=== PATIENT | female | born 1975 | race Hispanic/Latino ===

== ENCOUNTER 2024-05-02 12:16 | Inpatient (IN) | payer SELFPAY ==
[2024-05-02] MEDS ORDERED: ONDANSETRON 4 MG/2 ML VIAL ONE (13:21)
[2024-05-02] MEDS ORDERED: NA CHLORIDE 0.9% 1,000 ML ONE (13:21)
[2024-05-02 13:44] LABS: Absolute Basophils 0.1 K/uL (0-0.5); Absolute Lymphocytes (CBC) 1.6 K/uL (0.7-4.9); Absolute Monocytes 0.6 K/uL (0.1-1.3); Absolute Neutrophil 4.3 K/uL (1.8-8.0); Eosinophils % 0.3 % (0-4.4); Hematocrit 28.4 % (36.0-45.0); Hemoglobin 8.6 g/dL (12.0-15.0); MCH 17.7 pg (27.0-35.0); MCHC 30.3 g/dL (32.0-36.0); MCV 58.5 fL (80-100); MPV 8.7 fL (7.6-11.3); Monocytes % 8.8 % (3.3-12.3); Neutrophils % 65.9 % (41.7-73.7); Platelets 453 thou/uL (152-406); RBC Red Blood Cell Count 4.86 M/uL (3.86-4.86)
[2024-05-02 13:58] LABS: SARS-CoV-2 Antigen CONTROL BLUE LINE VIS/BG OK; SARS-CoV-2 Antigen Rapid Res Negative (Negative)
[2024-05-02 13:59] LABS: Albumin 3.9 g/dL (3.4-5.0); Anion Gap 9.6 mEq/L (5.0-15.0); Bilirubin Total 0.5 mg/dL (0.2-1.0); Globulin 4.1 g/dL (2.3-3.5); Potassium 3.6 mEq/L (3.5-5.1)
[2024-05-02 14:04] LABS: Anisocytosis 1+; Blood Morphology Comment NOTED (NOT SEEN); Hypochromasia 2+; Macrocytosis SLIGHT; Microcytosis 2+; Platelet Estimate ADEQ; White Blood Cell Scan OK (OK)
[2024-05-02 14:05] LABS: Platelets Clumped FEW
--- NOTE | 2024-05-02 15:10 | RAD REPORT ---
EXAMINATION: CT ABDOMEN AND PELVIS WITH CONTRAST CLINICAL INDICATION: Female, 48 years old.vomiting, diarrhea, blood in stool;Abd pain TECHNIQUE: CT abdomen and pelvis was performed, after the administration of IV contrast, as per [facility] behavioral care protocol. Axial, sagittal and coronal reconstructions were obtained. One or more of the following dose reduction techniques were used: Automated exposure control, adjustment of the mA and/o r kV according to patient size, and/or iterative reconstruction. Unless otherwise specified, incidental findings do not require dedicated imaging follow-up. [id number]. COMPARISON: No prior exam. FINDINGS: LOWER CHEST: No acute process identified.No significant pericardial effusion. Small hiatal hernia wit h circumferential thickening of the esophagus which could reflect esophagitis. Bilateral breast prostheses. UPPER GI: Progression wall thickening of the duodenum. There are some hyperdense material in the bianca pyloric region which may be recently ingested. LIVER: Hepatic steatosis, but otherwise unremarkable. GALLBLADDER/BILE DUCTS: Cholelithiasis without CT evidence of acute cholecystitis.? PANCREAS: No mass, ductal dilation, or bianca-pancreatic fluid. SPLEEN: Unremarkable. ADRENALS: No adrenal masses. KIDNEYS AND URETERS: No hydronephrosis.No suspicious renal mass. ABDOMINAL AORTA AND OTHER VESSELS: Normal caliber aorta and IVC. PERITONEUM: No abnormal free fluid. No free air. LYMPH NODES: No pathologic lymphadenopathy. ABDOMINAL WALL: Unremarkable SMALL BOWEL/COLON: Small bowel has normal course and caliber. No colonic wall thickening or pericolon ic inflammatory changes.Normal appendix. URINARY BLADDER: Underdistended but grossly unremarkable. REPRODUCTIVE ORGANS: Large intramural fibroid measuring 5.6 cm. Endometrial thickening versus fluid. MUSCULOSKELETAL: No acute or suspicious osseous abnormality. ADDITIONAL FINDINGS: None. IMPRESSION: No acute or significant abnormalities seen in the abdomen or pelvis. Cholelithiasis without CT evidence of acute cholecystitis. Possible wall thickening at the distal stomach/proximal duodenum. Dense contents in the peripyloric r egion may be recently ingested. Correlate clinically. Endoscopy could further evaluate this finding as well as the distal esophageal wall thickening. Large uterine fibroid. Endometrial fluid versus thickening which is probably within normal limits ass uming the patient is premenopausal. Normal appendix.
[2024-05-02] MEDS ORDERED: PANTOPRAZOLE 40 MG INJ ONE (15:50)
[2024-05-02] MEDS: PANTOPRAZOLE INJ 80 MG in NA CHLORIDE 0.9% 250 ML IV SCH (15:52)
--- NOTE | 2024-05-02 15:56 | EDPHYS ---
Physician Documentation [facility] Name: Olga Lidia Rodríguez Age: 48 yrs Sex: Female : 1975 Arrival Date: 05/02/2024 Time: 12:16 Bed 28 Private MD: ED Physician José Bray HPI: 05/02 13:31 This 48 yrs old Female presents to ER via Ambulatory with complaints of Fever, rn Flu Symptoms. 13:31 The patient presents with abdominal pain that is diffuse. rn 13:32 Onset: The symptoms/episode began/occurred 3 day(s) ago. The symptoms do not radiate. rn Associated signs and symptoms: Pertinent positives: nausea and vomiting, blood in stools, diarrhea, fever, Pertinent negatives:. The symptoms are described as achy, crampy. Modifying factors: The symptoms are alleviated by nothing, the symptoms are aggravated by nothing. The patient has not experienced similar symptoms in the past. 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 - Infectious Disease History:: Denies. - Social history:: Smoking status: Patient denies any tobacco usage or history of. - Family history:: not pertinent. - Hospitalizations: : No recent hospitalization is reported. ROS: 13:32 Constitutional: Positive for fever and chills Cardiovascular: Negative for chest pain, rn palpitations, and edema, Respiratory: Negative for shortness of breath, cough, wheezing, and pleuritic chest pain, Abdomen/GI: Positive for middle abdominal pain with nausea/vomiting/diarrhea MS/Extremity: Negative for injury and deformity, Skin: Negative for injury, rash, and discoloration, Neuro: Positive for generalized weakness and malaise Exam: 13:32 Constitutional: This is a well developed, well nourished patient who is awake, alert, rn and in no acute distress. Ambulatory to room without assistance ENT: Dry mucous membranes Cardiovascular: Regular rate and rhythm. No pulse deficits. Respiratory: No increased work of breathing, no retractions or nasal flaring. Abdomen/GI: Soft, no focal tenderness, mild tenderness mid abdomen Neuro: Awake and alert, GCS 15 Vital Signs: 12:57 BP 128 / 77; Pulse 81; Resp 17; Temp 97.9(O); Pulse Ox 98% ; Weight 54.43 kg; Height 4 ap3 ft. 11 in. ; Pain 8/10; 16:30 BP 124 / 86 Supine; Pulse 80; ll1 16:32 BP 121 / 70 Sitting; Pulse 75; ll1 16:35 BP 120 / 79 Standing; Pulse 78; ll1 12:57 Body Mass Index 24.24 (54.43 kg, 149.86 cm) ap3 12:57 Pain Scale: Adult ap3 MDM: 12:25 Medical Screening Exam initiated rn 15:55 Differential diagnosis: cholecystitis, Cholelithiasis, diverticulitis, gastritis, rn non-specific abd pain, pancreatitis, Peptic Ulcer Disease, Perf. Duodenal Ulcer, Perf. Gastric Ulcer, Peptic ulcer disease, duodenitis. Data reviewed: vital signs, nurses notes, lab test result(s), radiologic studies, CT scan, and as a result, I will admit patient. Consideration of Admission/Observation Patient was admitted/placed on observation. Escalation of care including admission/observation considered. Counseling: I had a detailed discussion with the patient and/or guardian regarding the historical points, exam findings, and any diagnostic results supporting the discharge/admit diagnosis, lab results, radiology results, the need for further work-up and treatment in the hospital. 05/02 17:46 Order name: Type and Screen [facility] 05/02 12:25 Order name: Flu; Complete Time: 14:22 rn 05/02 12:25 Order name: SARS-COV-2 Antigen Rapid; Complete Time: 14:11 05/02 12:58 Order name: CBC with Diff; Complete Time: 14:11 05/02 12:58 Order name: CMP; Complete Time: 14:11 rn 05/02 12:58 Order name: Lipase; Complete Time: 14:11 05/02 14:05 Order name: CBC Smear Scan; Complete Time: 14:11 [facility] 05/02 17:46 Order name: Type and Screen [facility] 05/02 17:46 Order name: Ferritin [facility] 05/02 17:46 Order name: Ferritin [facility] 05/02 17:46 Order name: Iron [facility] 05/02 17:46 Order name: Iron EDMS 05/02 17:46 Order name: Retic Count ED[facility] 05/02 17:46 Order name: Retic Count [facility] 05/02 17:46 Order name: Transferrin Sat/Iron Binding [facility] 05/02 17:46 Order name: Transferrin Sat/Iron Binding [facility] 05/03 05:40 Order name: ABO/RH no charge [facility] 05/02 12:58 Order name: CT Abd/Pelvis - IV Contrast Only; Complete Time: 15:13 rn 05/02 12:58 Order name: IV Saline Lock; Complete Time: 13:31 rn 05/02 12:58 Order name: Labs collected and sent; Complete Time: 13:31 rn 05/02 16:02 Order name: Orthostatics; Complete Time: 16:40 jl7 Administered Medications: 13:32 Drug: Ondansetron IVP 4 mg IVP once; over 2 minutes Route: IVP; Site: left antecubital; ld1 15:55 Follow up: Response: No adverse reaction; Nausea is decreased ll1 13:32 Drug: NS 0.9% IV 1000 ml IV at 1 bolus Per protocol; to be given as a bolus over 60 ld1 minutes Route: IV; Rate: 1 bolus; Site: left antecubital; 15:56 Follow up: Response: No adverse reaction; IV Status: Completed infusion; IV Intake: ll1 1000ml 15:55 Drug: Pantoprazole IVP 40 mg IVP once Route: IVP; Site: left antecubital; ll1 16:39 Follow up: Response: No adverse reaction ll1 16:40 Drug: Pantoprazole IV 8 mg/hr IV at 25 ml/hr continuous; (Standard dilution is 80 mg in ll1 250 mL NS) Route: IV; Rate: 25 ml/hr; Site: left antecubital; 17:34 Follow up: Response: No adverse reaction; IV Status: Infusion continued upon admission; ll1 IV Intake: 25ml Disposition Summary: 05/02/24 15:56 Hospitalization Ordered Notes: Hospitalization Status: Inpatient Admission rn Provider: Asa Robledo rn Condition: Stable rn Problem: new rn Symptoms: are unchanged rn Bed/Room Type: Standard rn Location: Telemetry/MedSurg (Inpatient)(05/03/24 14:54) Room Assignment: 422(05/03/24 14:54) bd Diagnosis - Duodenitis rn - Acute gastritis with bleeding rn - Anemia, unspecified rn Forms: - Medication Reconciliation Form rn - SBAR form rn - Leadership Thank You Letter rn Signatures: Dispatcher [employer] EDMS Jessica Diez bd José Bray MD MD rn Leal, Jahala, RN RN jl7 Emily Larsen RN RN ap3 Marina Beth, RN RN ll1 Mae Zelaya RN RN ld1 Niurka Avery, RN RN kb3 Corrections: (The following items were deleted from the chart) 12:59 12:58 CBC+H.LAB.BRZ ordered. EDMS EDMS 12:59 12:58 COMPREHENSIVE METABOLIC PANEL+C.LAB.BRZ ordered. EDMS EDMS 12:59 12:58 LIPASE+C.LAB.BRZ ordered. EDMS EDMS 12:59 12:59 Abdomen Pelvis W Con+CT.RAD.BRZ ordered. EDMS EDMS 18:02 15:56 Telemetry/MedSurg (Inpatient) rn kb3 18:02 15:56 rn kb3 05/03 14:54 05/02 18:02 [facility] ER HOLD kb3 bd 05/03 14:54 05/02 18:02 ERHOLD- kb3 bd
--- NOTE | 2024-05-02 15:56 | ER ---
Nurse's Notes [facility] Name: Olga Lidia Rodríguez Age: 48 yrs Sex: Female : 1975 Arrival Date: 05/02/2024 Time: 12:16 Bed 28 Private MD: Diagnosis: Duodenitis;Acute gastritis with bleeding;Anemia, unspecified Presentation: 05/02 12:57 Chief complaint: Patient states: she has been having fever, vomiting and blood in stool ap3 with abdominal cramping since Thursday04/29/24. patient currently rates her pain as a 8/10 on the pain scale. Coronavirus screen: At this time, the client does not indicate any symptoms associated with coronavirus-19. Ebola Screen: No symptoms or risks identified at this time. Initial Sepsis Screen: Does the patient meet any 2 criteria? No. Patient's initial sepsis screen is negative. Does the patient have a suspected source of infection? No. Patient's initial sepsis screen is negative. Risk Assessment: Do you want to hurt yourself or someone else? Patient reports no desire to harm self or others. Onset of symptoms was April 29, 2024. 12:57 Method Of Arrival: Ambulatory ap3 12:57 Acuity: SUE 3 ap3 Triage Assessment: 12:59 General: Appears in no apparent distress. Behavior is calm, cooperative, appropriate ap3 for age. Pain: Complains of pain in abdomen Pain currently is 8 out of 10 on a pain scale. Neuro: Level of Consciousness is awake, alert, obeys commands, Oriented to person, place, time, situation, Appropriate for age. Cardiovascular: Patient's skin is warm and dry. Respiratory: Airway is patent Respiratory effort is even, unlabored, Respiratory pattern is regular, symmetrical. GI: Reports lower abdominal pain, upper abdominal pain, cramping, bloody stool. 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 - Infectious Disease History:: Denies. - Social history:: Smoking status: Patient denies any tobacco usage or history of. - Family history:: not pertinent. - Hospitalizations: : No recent hospitalization is reported. Screenin:59 [facility] ED Fall Risk Assessment (Adult) History of falling in the last 3 months, ap3 including since admission No falls in past 3 months (0 pts) Confusion or Disorientation No (0 pts) Intoxicated or Sedated No (0 pts) Impaired Gait No (0 pts) Mobility Assist Device Used No (0 pt) Altered Elimination No (0 pt) Score/Fall Risk Level 0 - 2 = Low Risk Oriented to surroundings, Maintained a safe environment, Educated pt \T\ family on fall prevention, incl call for assistance when getting out of bed, Assessed \T\ reinforced patient's understanding of fall precautions, Hourly rounding (assess needs \T\ fall precautionary measures) done, Used ambulatory aids as needed (educated on \T\ assisted with), Used gait belt as appropriate. Abuse screen: Denies threats or abuse. Nutritional screening: No deficits noted. Tuberculosis screening: No symptoms or risk factors identified. Assessment: 15:50 General: Appears uncomfortable, Behavior is calm, cooperative, appropriate for age, ll1 Reports fever for feeling ill for fatigue for. 15:50 Pain: Pain currently is 8 out of 10 on a pain scale. Quality of pain is described as ll1 aching, crampy. Neuro: Reports weakness. GI: Reports cramping, rectal bleeding, nausea, vomiting. 16:50 Reassessment: No changes from previously documented assessment. Patient and/or family ll1 updated on plan of care and expected duration. Pain level reassessed. Vital Signs: 12:57 BP 128 / 77; Pulse 81; Resp 17; Temp 97.9(O); Pulse Ox 98% ; Weight 54.43 kg; Height 4 ap3 ft. 11 in. ; Pain 8/10; 16:30 BP 124 / 86 Supine; Pulse 80; ll1 16:32 BP 121 / 70 Sitting; Pulse 75; ll1 16:35 BP 120 / 79 Standing; Pulse 78; ll1 12:57 Body Mass Index 24.24 (54.43 kg, 149.86 cm) ap3 12:57 Pain Scale: Adult ap3 ED Course: 12:18 Patient arrived in ED. ra3 12:25 José Bray MD is Attending Physician. rn 12:58 Triage completed. ap3 12:59 Arm band placed on right wrist. ap3 13:32 SARS-COV-2 Antigen Rapid Sent. ld1 13:32 Flu Sent. ld1 13:32 CBC with Diff Sent. ld1 13:32 CMP Sent. ld1 13:32 Lipase Sent. ld1 13:32 Inserted saline lock: 20 gauge in left antecubital area, using aseptic technique. Blood ld1 collected. Flushed with 10 mL NS. 14:37 CT Abd/Pelvis - IV Contrast Only In Process Unspecified. EDMS 15:47 Marina Beth, RN is Primary Nurse. ll1 15:50 Patient has correct armband on for positive identification. Bed in low position. ll1 Provided Education on: ER procedures and process. Client placed on continuous cardiac and pulse oximetry monitoring. NIBP monitoring applied. 15:55 Asa Robledo is Hospitalizing Provider. rn 16:44 No provider procedures requiring assistance completed. Patient admitted, IV remains in ll1 place. 05/03 06:58 Primary Nurse role handed off by Marina Beth, LUL bd Administered Medications: 05/02 13:32 Drug: Ondansetron IVP 4 mg IVP once; over 2 minutes Route: IVP; Site: left antecubital; ld1 15:55 Follow up: Response: No adverse reaction; Nausea is decreased ll1 13:32 Drug: NS 0.9% IV 1000 ml IV at 1 bolus Per protocol; to be given as a bolus over 60 ld1 minutes Route: IV; Rate: 1 bolus; Site: left antecubital; 15:56 Follow up: Response: No adverse reaction; IV Status: Completed infusion; IV Intake: ll1 1000ml 15:55 Drug: Pantoprazole IVP 40 mg IVP once Route: IVP; Site: left antecubital; ll1 16:39 Follow up: Response: No adverse reaction ll1 16:40 Drug: Pantoprazole IV 8 mg/hr IV at 25 ml/hr continuous; (Standard dilution is 80 mg in ll1 250 mL NS) Route: IV; Rate: 25 ml/hr; Site: left antecubital; 17:34 Follow up: Response: No adverse reaction; IV Status: Infusion continued upon admission; ll1 IV Intake: 25ml Medication: 16:44 VIS not applicable for this client. ll1 Intake: 15:56 IV: 1000ml; Total: 1000ml. ll1 17:34 IV: 25ml; Total: 1025ml. ll1 Outcome: 15:56 Decision to Hospitalize by Provider. rn 16:44 Admitted to Med/surg ll1 16:44 Condition: stable 16:44 Instructed on the need for admit, 05/03 16:59 Patient left the ED. ld1 Signatures: Dispatcher [employer] EDMS Jessica Diez Roman, MD MD rn Prokisch, LUL Diaz RN joe3 Marina Beth RN RN ll1 Mae Zelaya RN RN ld1 Sue Sanon ra3 Corrections: (The following items were deleted from the chart) 05/02 16:44 15:50 General: Appears uncomfortable, Behavior is calm, cooperative, appropriate for ll1 age, Reports fever for feeling ill for fatigue for ll1
[2024-05-02] MEDS ORDERED: MAGNESIUM HYDROXIDE 8% 30 ML PO PRN (17:37)
[2024-05-02] MEDS ORDERED: ALBUTEROL 2.5 MG/3 ML NEB SOL NEB PRN (17:37)
[2024-05-02] MEDS ORDERED: ACETAMINOPHEN 325 MG TABLET PO PRN (17:37)
[2024-05-02] MEDS ORDERED: ZOLPIDEM TARTRATE 5 MG TABLET PO PRN (17:37)
[2024-05-02] MEDS: D5.45NS W/KCL 20MEQ 1,000 ML IV SCH (18:00)
--- NOTE | 2024-05-02 19:27 | P.HP ---
Certification for Inpatient Patient admitted to: Observation With expected LOS: <2 Midnights Patient will require the following post-hospital care: None Practitioner: I am a practitioner with admitting privileges, knowledge of patient current condition, hospital course, and medical plan of care. Services: Services provided to patient in accordance with Admission requirements found in Title 42 Section 412.3 of the Code of Federal Regulations Patient History Date of Service: 05/02/24 Reason for admission: Duodenitis, acute gastritis with hematochezia, anemia History of Present Illness: Ms. Rodríguez is a 48-year-old female with a past medical history of irregular menstrual cycles with menorrhagia and anemia. She presented to the emergency room secondary to nightly fevers of 101, mild dizziness, nausea, vomiting, and passage of bright red diarrheal stools for the past 3 days. On exam she is hemodynamically stable, with mild pallor, afebrile, and oriented x 3. She will be admitted for hydration, serial H&H evaluations, a Protonix drip, with consultation with Dr. Melgoza. Allergies levofloxacin [From Levaquin] Allergy (Verified 05/02/24 15:20) Rash Home Medications: NK [No Home Meds] 05/02/24 - Past Medical/Surgical History Has patient received pneumonia vaccine in the past: No -: Irregular heavy cycles -: x 4 Psychosocial/ Personal History: Patient lives at home with her children, she states she has had similar episodes in the past but not for the last 8 or 9 years - Family History Father -: Hypertension Mother -: Hypertension - Social History Smoking Status: Never smoker Alcohol use: No CD- Drugs: No Caffeine use: Yes Place of Residence: Home Review of Systems 10-point ROS is otherwise unremarkable General: Fever, Weakness, As per HPI Eyes: Unremarkable ENT: Unremarkable Respiratory: Unremarkable Cardiovascular: Unremarkable Gastrointestinal: Nausea, Vomiting, Abdominal Pain, Diarrhea, As per HPI Genitourinary: Unremarkable Musculoskeletal: Unremarkable Integumentary: Unremarkable Neurological: Unremarkable Lymphatics: Unremarkable Physical Examination - Physical Exam General: Alert, In no apparent distress, Oriented x3, Cooperative, Other (mild pallor) HEENT: Atraumatic, Normocephalic Neck: Supple Respiratory: Clear to auscultation bilaterally, Normal air movement Cardiovascular: Normal pulses, Regular rate/rhythm, Systolic murmur Capillary refill: <2 Seconds Gastrointestinal: Soft and benign Musculoskeletal: No clubbing, No swelling Integumentary: No rashes Neurological: Normal speech, Normal affect Lymphatics: No axilla or inguinal lymphadenopathy External genitalia: Deferred Rectal: Deferred - Studies Laboratory Data (last 24 hrs) 05/02/24 05/02/24 13:25 13:25 WBC 6.60 Hgb 8.6 L Hct 28.4 L Plt Count 453 H Sodium 136 Potassium 3.6 BUN 9 Creatinine 0.61 Glucose 102 Total Bilirubin 0.5 AST 16 ALT 19 Alkaline Phosphatase 43 L Lipase 29 Microbiology Data (last 24 hrs): 05/02/24 13:30 Nasopharnyx Influenza Type A Antigen Screen - Final 05/02/24 13:30 Nasopharnyx Influenza Type B Antigen Screen - Final Assessment and Plan - Plan Duodenitis, GIB Patient is otherwise stable. 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
[2024-05-02] MEDS ORDERED: ACETAMINOPHEN 500 MG TAB ONE (20:52)
[2024-05-02] MEDS: ACETAMINOPHEN 500 MG TAB PO PRN (21:49)
[2024-05-02] MEDS ORDERED: D5.45NS W/KCL 20MEQ 1,000 ML IV ONE (22:46)
[2024-05-02] MEDS ORDERED: FAMOTIDINE 20 MG TAB ONE (22:46)
[2024-05-03 05:02] LABS: Percent Reticulocyte Count 1.99 % (0.4-2.05); RBC Red Blood Cell Count 3.97 M/uL (3.86-4.86)
[2024-05-03 05:14] LABS: Ferritin 5.5 ng/mL (8-252)
[2024-05-03] MEDS ORDERED: ONDANSETRON 4 MG/2 ML VIAL ONE (08:35)
[2024-05-03] MEDS ORDERED: FAMOTIDINE 20 MG TAB ONE (08:36)
[2024-05-03] MEDS: SOD FERRIC GLUC COMPLX/SUCROSE 250 MG in NA CHLORIDE 0.9% 250 ML IV SCH (08:43)
[2024-05-03] MEDS: ONDANSETRON 4 MG/2 ML VIAL IV PRN (08:43)
[2024-05-03] MEDS: FAMOTIDINE 20 MG TAB PO SCH (08:43)
[2024-05-03] MEDS ORDERED: D5.45NS W/KCL 20MEQ 1,000 ML IV ONE (10:52)
--- NOTE | 2024-05-03 13:11 | P.PN ---
Subjective Date of Service: 05/03/24 Chief Complaint: Duodenitis, acute gastritis with hematochezia, anemia Subjective: No new changes Patient states that no more rectal bleeding, denied any diarrhea or constipation or chest pain or shortness of breath. Poor oral intake, mild epigastric pain, but tolerating oral fluid without any nausea and vomiting. She [facility] but have not seen STATE DIRECTOR or any intervention. Review of Systems Other: Consitutional; fever(-), chills (-), rigor(-), night sweat(-), unintentional weight loss(-), malaise (-) HEENT; diplopia (-), rhinorrhea (-), epistaxis (-), otorrhea (-), otalgia (-) Respiratory; shortness of breath (-), wheezing (-), cough (-), sputum (-), pleuritic chest pain (-) Cardiovascular; chest pain (-), peripheral edema (-), paroxysmal nocturnal dyspnea (-), orthopnea (-) Gastrointestinal; nausea (-), vomiting (-), abdominal pain (+), diarrhea (-), constipation (-), melena (-), hematochezia (+) Genitourinary; urinary frequency (-), dysuria (-), urgency (-), flank pain (-), gross hematuria (-), incontinence (-) Skin; rash (-), pruritus (-) FATBACK TRIMMER; headache (-), paresthesia (-), numbness (-), paralysis (-) Physical Examination - Vital Signs Temperature: 98.2 F Blood Pressure: 165/87 Pulse: 86 Respirations: 16 Pulse Ox (%): 100 - Physical Exam Other Physical/Emotional Findings: - Physical Exam. General: Not acutely ill looking, in no apparent distress,. HEENT: Normocephalic, atraumatic, nonicteric sclera, anemic conjunctive. Neck: Supple, without JVD or goiter or thyroid mass. Respiratory: Normal breathing effort, clear to auscultation bilaterally, no crackles no wheezing or rhonchi. Cardiovascular: Regular rate and rhythm, S1, S2 normal, no murmur no gallop. Gastrointestinal: Normal bowel sounds, nondistended, nontender, No ascites, , No masses, no hepatosplenomegaly. Extremities : No clubbing, No peripheral edema,. Integumentary: No rashes, petechia, suspected lesions. Lymphatics: No axilla or cervical lymphadenopathy. Neurology; alert awake oriented x3, no focal neurologic deficit, normal affection . mood and behavior. - Studies Laboratory Data (last 24 hrs) 05/02/24 05/02/24 13:25 13:25 WBC 6.60 Hgb 8.6 L Hct 28.4 L Plt Count 453 H Sodium 136 Potassium 3.6 BUN 9 Creatinine 0.61 Glucose 102 Total Bilirubin 0.5 AST 16 ALT 19 Alkaline Phosphatase 43 L Lipase 29 Microbiology Data (last 24 hrs): 05/02/24 13:30 Nasopharnyx Influenza Type A Antigen Screen - Final 05/02/24 13:30 Nasopharnyx Influenza Type B Antigen Screen - Final Assessment And Plan - Plan Ms. Rodríguez is a 48-year-old female with a past medical history of irregular me nstrual cycles with menorrhagia and anemia. She presented to the emergency room secondary to nightly fevers of 101, mild dizziness, nausea, vomiting, and passage of bright red diarrheal stools for the past 3 days. #1 acute gastroenteritis likely viral Become afebrile, no leukocytosis, tested negative for influenza A&B and COVID- 19, still epigastric discomfort, but tolerating liquid, continue IV fluid and oral diet as tolerated, symptomatic management with famotidine and ondansetron #2 severe iron deficiency anemia secondary to #3 and #4 Hemoglobin 8.6, iron study reviewed, consistent with iron deficiency anemia, will start her on IV iron therapy during hospitalization, I will order repeat H&H tomorrow morning. #3 intermittent lower GI bleeding Differential diagnosis colonic polyp or hemorrhoid, GI consulted for colonoscopy with without EGD #4 menorrhagia due to large uterine fibroid by CT scan Need to follow with STATE DIRECTOR as outpatient DVT prophylaxis sequential compression device, contraindicated to anticoagulation for #3
[2024-05-03] MEDS: FLU (Fluarix Triv) TS24-25(6MOS UP)/PF 45 MCG/0.5 ML Syringe IM ONE (14:15)
[2024-05-03 17:09] VITALS: BMI 5202.1
[2024-05-04] MEDS ORDERED: NA CHLORIDE 0.9% 250 ML IV SCH ×2 (09:00→12:00)
[2024-05-04] MEDS: ACETAMINOPHEN 500 MG TAB PO ONE (09:04)
[2024-05-04] MEDS: DIPHENHYDRAMINE 50 MG/ML VIAL IV ONE (09:04)
[2024-05-04] MEDS ORDERED: LIDOCAINE 1% MPF 5 ML VIAL ONE (13:59)
[2024-05-04] MEDS ORDERED: propofoL 200 MG/20 ML VIAL IV ONE (13:59)
[2024-05-04 14:24] LABS: Specific Gravity 1.016 (1.005-1.030)
[2024-05-04] MEDS: NA CHLORIDE 0.9% 500 ML ONE (14:30)
--- NOTE | 2024-05-04 15:19 | P.PN ---
Subjective Date of Service: 05/04/24 Chief Complaint: Duodenitis, acute gastritis with hematochezia, anemia Subjective: New changes Her repeat hemoglobin down to 6.8, she is complaining of fatigue but no chest pain or dizziness or dyspnea. Her epigastric pain has subsided, able to tolerate p.o. okay, denied any melena or hematochezia. She is having menstrual period at the moment and but her periods not heavy. Review of Systems Other: Consitutional; fever(-), chills (-), rigor(-), night sweat(-), unintentional weight loss(-), malaise (-) fatigue (+) HEENT; diplopia (-), rhinorrhea (-), epistaxis (-), otorrhea (-), otalgia (-) Respiratory; shortness of breath (-), wheezing (-), cough (-), sputum (-), pleuritic chest pain (-) Cardiovascular; chest pain (-), peripheral edema (-), paroxysmal nocturnal dyspnea (-), orthopnea (-) Gastrointestinal; nausea (-), vomiting (-), abdominal pain (-), diarrhea (-), constipation (-), melena (-), hematochezia (-) Genitourinary; urinary frequency (-), dysuria (-), urgency (-), flank pain (-), gross hematuria (-), incontinence (-) Skin; rash (-), pruritus (-) [employer]LE ASCP 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 General: Not acutely ill looking, in no apparent distress,. HEENT: Normocephalic, atraumatic, nonicteric sclera, anemic conjunctive. Neck: Supple, without JVD or goiter or thyroid mass. Respiratory: Normal breathing effort, clear to auscultation bilaterally, no crackles no wheezing or rhonchi. Cardiovascular: Regular rate and rhythm, S1, S2 normal, no murmur no gallop. Gastrointestinal: Normal bowel sounds, nondistended, nontender, No ascites, , No masses, no hepatosplenomegaly. Extremities : No clubbing, No peripheral edema,. Integumentary: No rashes, petechia, suspected lesions. Lymphatics: No axilla or cervical lymphadenopathy. Neurology; alert awake oriented x3, no focal neurologic deficit, normal affection . mood and behavior. Assessment And Plan - Plan Ms. Rodríguez is a 48-year-old female with a past medical history of irregular menstrual cycles with menorrhagia and anemia. She presented to the emergency room secondary to nightly fevers of 101, mild dizziness, nausea, vomiting, and passage of bright red diarrheal stools for the past 3 days. #1 acute viral gastroenteritis Seems to be resolving, become afebrile, no leukocytosis, tested negative for influenza A&B and COVID-19, tolerating oral diet well, I will discontinue IV fluid and oral diet as tolerated, symptomatic management with famotidine and ondansetron #2 symptomatic anemia combined with anemia of acute blood loss and severe iron deficiency anemia secondary to #3 and #4 Repeat hemoglobin 6.8, I will transfuse 1 unit packed RBC today and repeat H&H , iron study consistent with iron deficiency anemia, will continue her on IV iron therapy during hospitalization, #3 intermittent lower GI bleeding Differential diagnosis colonic polyp or hemorrhoid, GI consulted for colonoscopy with without EGD, GI outreach consultant called and left a message again #4 menorrhagia due to large uterine fibroid by CT scan Need to follow with ASSET PROTECTION AGENT as outpatient DVT prophylaxis sequential compression device, contraindicated to anticoag ulation for #3
[2024-05-04 15:53] VITALS: O2SAT 96
[2024-05-04 17:08] LABS: Hemoglobin 8.4 g/dL (12.0-15.0)
--- NOTE | 2024-05-04 20:33 | CON ---
History Of Presenting Illness: The patient is a 48-year-old woman with a history of known chronic ir on-deficiency anemia, irregular menstrual cycles, menorrhagia, came because of fever and noticing bee e bright red stools. Imaging actually revealed thickening of the distal esophagus and part of the du odenum. GI consultation was requested. Allergies: TO LEVOFLOXACIN. Home Medications: As in the chart. Past Medical History: As above. Past Surgical History: C-sections. Family History: Noncontributory. Social History: Denies toxic habits. Review of Systems: GI: As in HPI, otherwise negative. Hematological: As in HPI, otherwise negative. Gynecological: As in HPI, otherwise negative. Remainder of 10-point review of systems is negative. Physical Examination: Vital Signs: Reviewed. The patient is normotensive, not tachycardic, afebrile, not tachypneic. HEENT: Head atraumatic, normocephalic. Pupils equally reactive. Scleral icterus present. Neck: Supple. Chest: Clear to auscultation bilaterally. Abdomen: Soft, nontender, nondistended. Bowel sounds present. Extremities: No pedal edema. ASSEMBLER KNIFE: Alert and oriented x3. CVS: S1, S2 plus. Laboratory Data: Reviewed. Hemoglobin 8.6. Imaging: As mentioned above. Impression: A 48-year-old woman with iron-deficiency anemia, probably secondary to gynecological cau ses and large fibroids, but given abnormal CT and the recent drop, we will at least rule out upper GI pathology. We will schedule the patient for an upper endoscopy. Risks and complications include, b ut are not limited to bleeding, infection, perforation, and anesthesia complications. She understand s and agrees. US/MODL Voice ID: [id number] Report ID: [id number]
[2024-05-05] MEDS: POLYETHYL GLY 3350 17 GM/DOSE PO ONE (10:17)
--- NOTE | 2024-05-05 14:08 | P.PN ---
Subjective Date of Service: 05/05/24 Chief Complaint: Duodenitis, acute gastritis with hematochezia, anemia Subjective: Improving She received 1 unit packed RBC without adverse event yesterday, she felt much better after transfusion, less fatigue, no bowel movement or recurrent rectal bleeding since admission. Patient underwent a EGD yesterday which revealed gastritis, gastric polyp and mild hiatal hernia. Patient is tolerating oral diet well without any epigastric pain and nausea and vomiting. Review of Systems Other: Consitutional; fever(-), chills (-), rigor(-), night sweat(-), unintentional weight loss(-), malaise (-) HEENT; diplopia (-), rhinorrhea (-), epistaxis (-), otorrhea (-), otalgia (-) Respiratory; shortness of breath (-), wheezing (-), cough (-), sputum (-), pleuritic chest pain (-) Cardiovascular; chest pain (-), peripheral edema (-), paroxysmal nocturnal dyspnea (-), orthopnea (-) Gastrointestinal; nausea (-), vomiting (-), abdominal pain (-), diarrhea (-), constipation (-), melena (-), hematochezia (-) Genitourinary; urinary frequency (-), dysuria (-), urgency (-), flank pain (-), gross hematuria (-), incontinence (-) Skin; rash (-), pruritus (-) UNDERWRITING SUPPORT MANAGER; headache (-), paresthesia (-), numbness (-), paralysis (-) Physical Examination - Vital Signs Temperature: 98.2 F Blood Pressure: 118/67 Pulse: 74 Respirations: 20 Pulse Ox (%): 100 - Physical Exam Other Physical/Emotional Findings: - Physical Exam. General: Not acutely ill looking, in no apparent distress,. HEENT: Normocephalic, atraumatic, nonicteric sclera, anemic conjunctive. Neck: Supple, without JVD or goiter or thyroid mass. Respiratory: Normal breathing effort, clear to auscultation bilaterally, no crackles no wheezing or rhonchi. Cardiovascular: Regular rate and rhythm, S1, S2 normal, no murmur no gallop. Gastrointestinal: Normal bowel sounds, nondistended, nontender, No ascites, , No masses, no hepatosplenomegaly. Extremities : No clubbing, No peripheral edema,. Integumentary: No rashes, petechia, suspected lesions. Lymphatics: No axilla or cervical lymphadenopathy. Neurology; alert awake oriented x3, no focal neurologic deficit, normal affection . mood and behavior. Assessment And Plan - Plan Ms. Rodríguez is a 48-year-old female with a past medical history of irregular menstrual cycles with menorrhagia and anemia. She presented to the emergency room secondary to nightly fevers of 101, mild dizziness, nausea, vomiting, and passage of bright red diarrheal stools for the past 3 days. #1 acute viral gastroenteritis Seems to be resolving, become afebrile, no leukocytosis, tested negative for influenza A&B and COVID-19, tolerating oral diet well, continue oral diet as tolerated, symptomatic management with famotidine and ondansetron EGD results personally reviewed, nearly normal except for mild gastritis, benign gastric polyp, hiatal hernia #2 symptomatic anemia of acute blood loss combined with severe iron deficiency anemia secondary to #3 and #4 Repeat hemoglobin 8.4 from 6.8 after 1 unit packed cell transfusion, adequate response, iron study consistent with iron deficiency anemia, will continue her on IV iron therapy during hospitalization, #3 intermittent inactive lower GI bleeding Differential diagnosis colonic polyp or hemorrhoid, no more rectal bleeding since admission, I will order MiraLAX x 1 today, Inpatient colonoscopy if recurrent rectal bleeding with bowel movement otherwise I agree with GI performance consultant on outpatient colonoscopy #4 menorrhagia due to large uterine fibroid by CT scan Need to follow with HEALTH ASSESSMENT AND TREATMENT TEACHER as outpatient DVT prophylaxis sequential compression device, contraindicated to anticoagulation for #3 Disposition plan to discharge tomorrow or later today if patient has no rectal bleeding with bowel movement.
[2024-05-06] MEDS ORDERED: FORMULATION-R RECTAL 57GM PR PRN (09:53)
--- NOTE | 2024-05-06 10:08 | P.DS ---
Admission Date: 05/02/24 Discharge Date: 05/06/24 Disposition: ROUTINE DISCHARGE Discharge Condition: GOOD Reason for Admission: Duodenitis, acute gastritis with hematochezia, anemia Brief History of Present Illness: Ms. Rodríguez is a 48-year-old female with a past medical history of irregular menstrual cycles with menorrhagia and anemia. She presented to the emergency room secondary to nightly fevers of 101, mild dizziness, nausea, vomiting, and passage of bright red diarrheal stools for the past 3 days. Hospital Course: Patient was treated with symptomatic management for acute viral gastritis= with ondansetron, pantoprazole, she experienced intermittent rectal bleeding along with menstrual bleeding during hospitalization, hemoglobin down to 6.8, received 1 unit packed RBC. Patient was also found to have severe iron deficiency anemia and received 1 g of IV iron in total. She responded to treatment very well, her anemia symptom began to improve, follow-up hemoglobin went up to 9.4. She u nderwent EGD which revealed mild gastritis, gastric polyp, hiatal hernia. She was having a mild intermittent hematochezia with bowel movement, consistent with external hemorrhoid. H preparation was applied. GI financial planning consultant determined colonoscopy can be done as outpatient. The plan is to see her national account director for uterine fibroma as scheduled the following week, GI specialist for outpatient colonoscopy. #1 acute viral gastroenteritis Resolved, become afebrile, no leukocytosis, tested negative for influenza A&B and COVID-19, tolerating oral diet well, continue oral diet as tolerated, symptomatic management with famotidine and ondansetron EGD nearly normal except for mild gastritis, benign gastric polyp, hiatal hernia #2 symptomatic anemia of acute blood loss combined with severe iron deficiency anemia secondary to #3 and #4 Repeat hemoglobin 9.4 from 6.8 after 1 unit packed cell transfusion, adequate response, iron study consistent with iron deficiency anemia, IV iron therapy administered during hospitalization, #3 intermittent inactive lower GI bleeding secondary to presumed external hemorrhoid HC preparation, outpatient colonoscopy #4 menorrhagia due to large uterine fibroid by CT scan Need to follow with ACETYLENE GAS COMPRESSOR as outpatient Vital Signs/Physical Exam: Temp Pulse Resp BP Pulse Ox 98.0 F 67 16 102/52 L 99 05/06/24 04:00 05/06/24 04:00 05/06/24 04:00 05/06/24 04:00 05/06/24 04:00 Other Physical/Emotional Findings: - Physical Exam. General: Not acutely ill looking, in no apparent distress,. HEENT: Normocephalic, atraumatic, nonicteric sclera, anemic conjunctive. Neck: Supple, without JVD or goiter or thyroid mass. Respiratory: Normal breathing effort, clear to auscultation bilaterally, no crackles no wheezing or rhonchi. Cardiovascular: Regular rate and rhythm, S1, S2 normal, no murmur no gallop. Gastrointestinal: Normal bowel sounds, nondistended, nontender, No ascites, , No masses, no hepatosplenomegaly. Extremities : No clubbing, No peripheral edema,. Integumentary: No rashes, petechia, suspected lesions. Lymphatics: No axilla or cervical lymphadenopathy. Neurology; alert awake oriented x3, no focal neurologic deficit, normal affection . mood and behavior. Laboratory Data at Discharge: WBC 6.60 thou/uL (4.3-10.9) 05/02/24 13:25 Hgb 9.4 g/dL (12.0-15.0) L 05/06/24 06:46 Hct 26.0 % (36.0-45.0) L 05/04/24 17:01 Plt Count 453 thou/uL (152-406) H 05/02/24 13:25 Sodium 136 mEq/L (136-145) 05/02/24 13:25 Potassium 3.6 mEq/L (3.5-5.1) 05/02/24 13:25 BUN 9 mg/dL (7-18) 05/02/24 13:25 Creatinine 0.61 mg/dL (0.55-1.02) 05/02/24 13:25 Glucose 102 mg/dL (74-106) 05/02/24 13:25 Total Bilirubin 0.5 mg/dL (0.2-1.0) 05/02/24 13:25 AST 16 U/L (15-37) 05/02/24 13:25 ALT 19 U/L (13-56) 05/02/24 13:25 Alkaline Phosphatase 43 U/L (45-117) L 05/02/24 13:25 Lipase 29 U/L (13-75) 05/02/24 13:25 Home Medications: Ferrous Gluconate 324 mg PO BID #60 05/06/24 Ondansetron [Ondansetron Odt] 4 mg PO TID PRN #20 05/06/24 PE-Ep/Mo/Slov/Pet [Formulation R*] 1 appl NC BID #1 tube 05/06/24 New Medications: Ferrous Gluconate 324 mg PO BID #60 PE-Ep/Mo/Slov/Pet [Formulation R*] 1 appl NC BID #1 tube Ondansetron [Ondansetron Odt] 4 mg PO TID PRN #20 PRN Reason: Nausea / Vomiting Followup: NONE,NONE [Primary Care Provider] - Tato Lo MD [OUTSIDE PHYSICIAN] -
[2024-05-06 10:16] VITALS: BP 114/59; TEMP 97.8
[2024-05-06] MEDS ORDERED: FORMULATION-R RECTAL 57GM PR SCH (14:00)
== END 2024-05-06 14:18 | disposition home or self-care (01) | DRG 391 ==
LOC: ER 12:16 → ERHOLD 17:37 → 4TH 05-03 15:16
PROVIDERS: ADMIT Internal Medicine; ATTEND Internal Medicine
PROC: 0DB68ZX Excision of Stomach, Via Natural or Artificial Opening Endoscopic, Diagnostic (ICD-10-PCS; 2024-05-04)
PROC: 30233N1 Transfusion of Nonautologous Red Blood Cells into Peripheral Vein, Percutaneous Approach (ICD-10-PCS; 2024-05-04)
PROC: 0DB98ZX Excision of Duodenum, Via Natural or Artificial Opening Endoscopic, Diagnostic (ICD-10-PCS; principal; 2024-05-04 14:30)
DX: A08.4 Viral intestinal infection, unspecified (principal); K29.01 Acute gastritis with bleeding; D62 Acute posthemorrhagic anemia; K31.7 Polyp of stomach and duodenum; K29.80 Duodenitis without bleeding; N93.9 Abnormal uterine and vaginal bleeding, unspecified; K64.4 Residual hemorrhoidal skin tags; D50.9 Iron deficiency anemia, unspecified; K44.9 Diaphragmatic hernia without obstruction or gangrene; Z88.8 Allergy status to other drugs, medicaments and biological substances; Z11.52 Encounter for screening for COVID-19
CPT/HCPCS: 36415; 74177; 80053; 81025; 82728; 83540; 83690; 84466; 85014; 85018; 85025; 85044; 86850; 86900; 86901; 86920; 87804; 87811; 88305; 88312; 96361; 96365; 96375; 99285; J1200; J2003; J2405; J2470; J2704; J2916; J7030; J7040; J7050; P9016; Q9967

== ENCOUNTER 2024-12-28 07:43 | Observation (INO) | payer SELFPAY ==
[2024-12-28] MEDS ORDERED: FAMOTIDINE 20 MG/2 ML VIAL IV ONE (07:56)
[2024-12-28] MEDS ORDERED: NA CHLORIDE 0.9% 500 ML ONE (07:56)
[2024-12-28 08:16] LABS: Absolute Lymphocytes (CBC) 1.4 K/uL (0.7-4.9); Hematocrit 40.9 % (36.0-45.0); Hemoglobin 13.7 g/dL (12.0-15.0); MCH 27.0 pg (27.0-35.0); MCHC 33.4 g/dL (32.0-36.0); MCV 80.8 fL (80-100); MPV 8.9 fL (7.6-11.3); Nucleated RBC Absolute Count 0.0 (0-0); Nucleated Red Blood Cells % 0.0 % (0-0); RBC Red Blood Cell Count 5.06 M/uL (3.86-4.86); White Blood Count 6.30 thou/uL (4.3-10.9)
[2024-12-28 08:24] LABS: PT Prothrombin Time 12.2 SECONDS (10-13.0); Protime INR 1.08
[2024-12-28 08:40] LABS: ALT/SGPT 16 U/L (13-56); Albumin 3.7 g/dL (3.4-5.0); Albumin/Globulin Ratio 0.9 (1.1-1.8); Alkaline Phosphatase 60 U/L (45-117); Anion Gap 11.8 mEq/L (5.0-15.0); BUN Blood Urea Nitrogen 4 mg/dL (7-18); Globulin 4.0 g/dL (2.3-3.5); Glucose Level 116 mg/dL (74-106); Lipase 25 U/L (13-75); Magnesium 1.9 mg/dL (1.6-2.4); NT PRO-BNP 37 pg/mL (<125); Potassium 3.8 mEq/L (3.5-5.1); Troponin High Sensitivity 18.8 pg/mL (<58.9)
[2024-12-28 08:41] LABS: AST/SGOT < 10 U/L (15-37); Bilirubin Indirect, Calculated 0.3 mg/dL (0.2-0.8)
[2024-12-28] MEDS ORDERED: ONDANSETRON 4 MG/2 ML VIAL ONE (08:53)
[2024-12-28] MEDS ORDERED: MORPHINE 4 MG/ML SYR ONE (08:53)
--- NOTE | 2024-12-28 09:05 | RAD REPORT ---
EXAMINATION: ONE VIEW CHEST XR CLINICAL INDICATION: CHEST PAIN TECHNIQUE: Frontal chest projection is submitted. Examination is limited by patient positioning and t echnique. COMPARISON: No prior exam. FINDINGS: The lungs are well inflated and clear. The heart is upper limit of normal in size. No displaced fract ures identified. Hiatal hernia. IMPRESSION: No acute intrathoracic abnormalities.
--- NOTE | 2024-12-28 09:10 | RAD REPORT ---
EXAMINATION: CTA CHEST PE CLINICAL INDICATION: CHEST PAIN TECHNIQUE: This examination was performed according to an angiographic protocol with 3D post-processi ng. This involves 3D reconstructions, MIPs, volume rendered images and/or shaded surface rendering. One or more of the following dose reduction techniques were used: Automated exposure control, adjustm ent of the mA and/or kV according to patient size, and/or iterative reconstruction. Unless otherwise specified, incidental findings do not require dedicated imaging follow-up. COMPARISON: No prior exam. FINDINGS: PULMONARY ARTERIES: Normal caliber. No evidence of pulmonary emboli to the subsegmental level. THORACIC AORTA: Normal caliber and configuration. LUNGS: No evidence of airspace or interstitial process. No nodules. PLEURA: No pleural effusion. No pneumothorax. MEDIASTINUM AND LYMPH NODES: No mediastinal mass or fluid collection. Normal size mediastinal, hilar, and axillary lymph nodes. OSSEOUS STRUCTURES AND CHEST WALL: Intact. UPPER ABDOMEN: Moderate hiatal hernia. Cholelithiasis. IMPRESSION: No evidence of pulmonary emboli to the subsegmental level. Moderate hiatal hernia. Cholelithiasis.
[2024-12-28 09:30] LABS: Sqamous Epithelial <5 /HPF (None Seen); Urine Culture Reflex Order NOT NEEDED; Urine Microscopic Reflex YN ORDER UMIC
[2024-12-28] MEDS ORDERED: ENOXAPARIN 60 MG/0.6 ML SQ ONE (09:45)
[2024-12-28] MEDS ORDERED: METOPROLOL TAR 50 MG TAB ONE (09:45)
--- NOTE | 2024-12-28 09:52 | ER ---
Nurse's Notes [facility] Name: Olga Lidia Rodríguez Age: 49 yrs Sex: Female : 1975 Arrival Date: 12/28/2024 Time: 07:43 Bed 15 Private MD: Diagnosis: Chest pain, unspecified;Dyspnea Presentation: 12/28 07:53 Chief complaint: Patient states: L sided CP started Thursday, but got worse last night. ll1 ZAPATA, chills, nausea, diarrhea, lightheaded. No fever or cough. Coronavirus screen: Client denies travel out of the [place] in the last 14 days. chills, diarrhea, headache, muscle pain, nausea, Client presents with at least one sign or symptom that may indicate coronavirus-19. Standard/surgical mask placed on the client. Ebola Screen: Patient denies travel to an Ebola-affected area in the 21 days before illness onset. Initial Sepsis Screen: Does the patient meet any 2 criteria? No. Patient's initial sepsis screen is negative. Does the patient have a suspected source of infection? No. Patient's initial sepsis screen is negative. Risk Assessment: Do you want to hurt yourself or someone else? Patient reports no desire to harm self or others. Onset of symptoms was December 26, 2024. 07:53 Method Of Arrival: Ambulatory ll1 07:53 Acuity: SUE 3 ll1 Triage Assessment: 07:55 General: Appears uncomfortable, Behavior is calm, cooperative, appropriate for age, ll1 Reports chills for fatigue for. Pain: Complains of pain in chest Pain currently is 8 out of 10 on a pain scale. Quality of pain is described as aching. Neuro: Reports dizziness, headache weakness. Cardiovascular: Reports chest pain, fatigue, lightheadedness, nausea. GI: Reports diarrhea, nausea. Historical: - Allergies: 07:53 No Known Allergies; ll1 - PMHx: 07:53 None; ll1 - PSHx: 07:53 None; ll1 - Immunization history:: Adult Immunizations up to date. - Infectious Disease History:: Denies. - Social history:: Smoking status: Patient denies any tobacco usage or history of. Screenin:14 [facility] ED Fall Risk Assessment (Adult) History of falling in the last 3 months, iw including since admission No falls in past 3 months (0 pts) Confusion or Disorientation No (0 pts) Intoxicated or Sedated No (0 pts) Impaired Gait No (0 pts) Mobility Assist Device Used No (0 pt) Altered Elimination No (0 pt) Score/Fall Risk Level 0 - 2 = Low Risk Oriented to surroundings, Maintained a safe environment. Abuse screen: Denies threats or abuse. Denies injuries from another. Nutritional screening: No deficits noted. Tuberculosis screening: No symptoms or risk factors identified. Assessment: 08:12 General: Appears in no apparent distress. Behavior is calm, cooperative. Pain: iw Complains of pain in chest Pain: Pain began. Neuro: Level of Consciousness is awake, alert, obeys commands, Oriented to person, place, time, situation, Moves all extremities. Full function. 08:12 Cardiovascular: Reports chest pain, lightheadedness, Patient's skin is warm and dry. iw Rhythm is sinus rhythm. Respiratory: Respiratory effort is even, unlabored, Respiratory pattern is regular, symmetrical. GI: Abdomen is non-distended, Reports diarrhea, nausea. 10:13 Reassessment: Patient appears in no apparent distress at this time. Patient and/or iw family updated on plan of care and expected duration. Pain level reassessed. Patient is alert, oriented x 3, equal unlabored respirations, skin warm/dry/pink. Vital Signs: 07:53 BP 141 / 92; Pulse 88; Resp 17; Temp 98.1; Pulse Ox 98% on R/A; Weight 56.7 kg; Height iw 4 ft. 10 in. ; Pain 8/10; 10:13 BP 138 / 82; Pulse 88; Resp 18; Pulse Ox 98% on R/A; iw 07:53 Body Mass Index 26.13 (56.70 kg, 147.32 cm) iw 07:53 Pain Scale: Adult iw ED Course: 07:46 Patient arrived in ED. [email or web address] 07:48 Omar Velez MD is Attending Physician. gerald 07:48 Arm band placed on Patient placed in an exam room, on a stretcher. ll1 07:52 Laisha Love, RN is Primary Nurse. iw 07:55 Triage completed. ll1 08:14 Initial lab(s) drawn, by wv, sent to lab. Inserted saline lock: 20 gauge in left iw antecubital area, using aseptic technique. Blood collected. Flushed with 10 mL NS. 08:22 XRAY Chest (1 view) In Process Unspecified. EDMS 08:40 Patient maintains SpO2 saturation greater than 95% on room air. iw 09:02 CT Chest For PE Angio In Process Unspecified. EDMS 09:48 Prince Lau MD is Hospitalizing Provider. gerald 09:50 Abdomen Limited In Process Unspecified. EDMS 12:22 No provider procedures requiring assistance completed. Patient admitted, IV remains in iw place. 12:44 Lab(s) recollected, by [employer], sent to lab. ts3 Administered Medications: 08:11 Drug: NS 0.9% IV 500 ml 500 ml IV at 1 bolus once; to be given as a bolus over 30 iw minutes Volume: 500 ml; Route: IV; Rate: 1 bolus; Site: left antecubital; 10:00 Follow up: IV Status: Completed infusion iw 08:11 Drug: Famotidine IVP 20 mg IVP once; dilute with 10 mL 0.9% NaCl; give over 2 minutes iw Route: IVP; Site: left antecubital; 09:18 Drug: morphine IVP or IV 4 mg IVP once over 4 mins Route: IVP; Infused Over: 4 mins; iw Site: left antecubital; 09:18 Drug: Ondansetron IVP 4 mg IVP once; over 2 minutes Route: IVP; Site: left antecubital; iw 09:56 Drug: Enoxaparin Sub-Q 1 mg/kg Sub-Q once Route: Sub-Q; Site: right lower abdomen; iw 09:56 Drug: Metoprolol PO 50 mg PO once Route: PO; iw Medication: 08:13 VIS not applicable for this client. iw Outcome: 09:52 Decision to Hospitalize by Provider. gerald 09 11:44 Patient left the ED. iw Signatures: Dispatcher [employer] EDW[facility] Omar Velez MD MD cha Williams, Irene RN RN iw Marina Beth RN RN ll1 Tatyana Mobley 3 Ailin Miller ts3 Corrections: (The following items were deleted from the chart) 12/28 08:11 07:53 Resp 17bpm; 56.7 kg; Height 4 ft. 10 in.; BMI: 26.1; Pain 8/10, Adult; ll1 iw 08:41 07:53 BP 141 / 92; Pulse 88bpm; Resp 17bpm; Pulse Ox 98% RA; 56.7 kg; Height 4 ft. 10 iw in.; BMI: 26.1; Pain 8/10, Adult; iw
--- NOTE | 2024-12-28 09:52 | EDPHYS ---
Physician Documentation [facility] Name: Olga Lidia Rodríguez Age: 49 yrs Sex: Female : 1975 Arrival Date: 12/28/2024 Time: 07:43 Bed 15 Private MD: ED Physician Omar Velez HPI: 12/28 09:36 This 49 yrs old Female presents to ER via Ambulatory with complaints of Chest gerald Pain. 09:36 The patient or guardian reports chest pain that is located primarily in the anterior gerald chest wall, left. Onset: 1 day(s) ago. The pain does not radiate. Associated signs and symptoms: The patient has no apparent associated signs or symptoms. The chest pain is described as a pressure. Modifying factors: The symptoms are alleviated by remaining still, the symptoms are aggravated by activity, breathing, movement, palpation of area. Severity of pain: At its worst the pain was mild moderate in the emergency department the pain is unchanged. The patient has not experienced similar symptoms in the past. Historical: - Allergies: 07:53 No Known Allergies; ll1 - PMHx: 07:53 None; ll1 - PSHx: 07:53 None; ll1 - Immunization history:: Adult Immunizations up to date. - Infectious Disease History:: Denies. - Social history:: Smoking status: Patient denies any tobacco usage or history of. ROS: 09:39 Constitutional: Negative for fever, chills, and weight loss, Eyes: Negative for injury, gerald pain, redness, and discharge, ENT: Negative for injury, pain, and discharge, Neck: Negative for injury, pain, and swelling, Respiratory: Negative for shortness of breath, cough, wheezing, and pleuritic chest pain, Abdomen/GI: Negative for abdominal pain, nausea, vomiting, diarrhea, and constipation, Back: Negative for injury and pain, : Negative for injury, bleeding, discharge, and swelling, MS/Extremity: Negative for injury and deformity, Skin: Negative for injury, rash, and discoloration, Neuro: Negative for headache, weakness, numbness, tingling, and seizure, Psych: Negative for depression, anxiety, suicide ideation, homicidal ideation, and hallucinations, Allergy/Immunology: Negative for hives, rash, and allergies, Endocrine: Negative for neck swelling, polydipsia, polyuria, polyphagia, and marked weight changes, Hematologic/Lymphatic: Negative for swollen nodes, abnormal bleeding, and unusual bruising, 09:39 Cardiovascular: Positive for chest pain, of the left clavicle and anterior aspect of left upper chest, Exam: 09:39 Constitutional: This is a well developed, well nourished patient who is awake, alert, gerald and in no acute distress. Head/Face: Normocephalic, atraumatic. Eyes: Pupils equal round and reactive to light, extra-ocular motions intact. Lids and lashes normal. Conjunctiva and sclera are non-icteric and not injected. Cornea within normal limits. Periorbital areas with no swelling, redness, or edema. ENT: Nares patent. No nasal discharge, no septal abnormalities noted. Tympanic membranes are normal and external auditory canals are clear. Oropharynx with no redness, swelling, or masses, exudates, or evidence of obstruction, uvula midline. Mucous membranes moist. Neck: Trachea midline, no thyromegaly or masses palpated, and no cervical lymphadenopathy. Supple, full range of motion without nuchal rigidity, or vertebral point tenderness. No Meningismus. Cardiovascular: Regular rate and rhythm with a normal S1 and S2. No gallops, murmurs, or rubs. Normal PMI, no JVD. No pulse deficits. Respiratory: Lungs have equal breath sounds bilaterally, clear to auscultation and percussion. No rales, rhonchi or wheezes noted. No increased work of breathing, no retractions or nasal flaring. Abdomen/GI: Soft, non-tender, with normal bowel sounds. No distension or tympany. No guarding or rebound. No evidence of tenderness throughout. Back: No spinal tenderness. No costovertebral tenderness. Full range of motion. Skin: Warm, dry with normal turgor. Normal color with no rashes, no lesions, and no evidence of cellulitis. MS/ Extremity: Pulses equal, no cyanosis. Neurovascular intact. Full, normal range of motion., bilateral aka Neuro: Awake and alert, GCS 15, oriented to person, place, time, and situation. Cranial nerves II-XII grossly intact. Motor strength 5/5 in all extremities. Sensory grossly intact. Cerebellar exam normal. Normal gait. 09:39 Chest/axilla: Inspection: normal, Palpation: crepitus, is not appreciated, tenderness, that is mild, that is moderate, of the left clavicle and anterior aspect of left upper chest, Lymph nodes: lymphadenopathy is not appreciated, 09:39 ECG was reviewed by the Attending Physician. Vital Signs: 07:53 BP 141 / 92; Pulse 88; Resp 17; Temp 98.1; Pulse Ox 98% on R/A; Weight 56.7 kg; Height iw 4 ft. 10 in. ; Pain 8/10; 10:13 BP 138 / 82; Pulse 88; Resp 18; Pulse Ox 98% on R/A; iw 07:53 Body Mass Index 26.13 (56.70 kg, 147.32 cm) iw 07:53 Pain Scale: Adult iw MDM: 07:48 Medical Screening Exam initiated gerald 09:41 Differential diagnosis: abnormal EKG, acute myocardial infarction, acute pericarditis, gerald chest wall pain, Cholelithiasis costochondritis, gastritis, hiatal hernia, pancreatitis, peptic ulcer disease, pneumothorax, pulmonary embolus, stable angina, thoracic aortic disection, unstable angina. HEART Score: History: Slightly Suspicious (0), ECG: Non specific repolarization disturbance / LBTB / PM (1), Age: > 45 and < 65 years (1), Risk Factors: 1 or 2 risk factors (1), [+ Family HX] [Obesity] Troponin: < or = 1 x Normal Limit (0), Total Score = 3. The patient was given aspirin in the Emergency Department. SAVAGE Risk Score: 1 - Recent [<24hrs] Severe Angina, TOTAL SCORE = 1. Data reviewed: vital signs, nurses notes, lab test result(s), EKG, radiologic studies, plain films. Consideration of Admission/Observation Patient was admitted/placed on observation. Escalation of care including admission/observation considered. I considered the following discharge prescriptions or medication management in the emergency department Medications were administered in the Emergency Department. See MAR. Independent interpretation of the following test(s) in the Emergency Department EKG: See my EKG interpretation above. Test considered but Not performed: Ultrasound NO 2 D ECHO. Historians other than the Patient: PT WELL INFORMED. Care significantly affected by the following chronic conditions: Obesity, NONE. 12/28 07:49 Order name: Basic Metabolic Panel; Complete Time: 08:43 [facility] 12/28 07:49 Order name: CBC with Diff; Complete Time: 08:43 [facility] 12/28 07:49 Order name: LFT's; Complete Time: 08:43 gerald 12/28 07:49 Order name: Magnesium; Complete Time: 08:43 gerald 12/28 07:49 Order name: NT PRO-BNP; Complete Time: 08:43 gerald 12/28 07:49 Order name: PT-INR; Complete Time: 08:43 gerald 12/28 07:49 Order name: Troponin HS; Complete Time: 08:43 gerald 12/28 07:49 Order name: Lipase; Complete Time: 08:43 [facility] 12/28 07:49 Order name: UA Rfx Vinod Cult if indicated gerald 12/28 10:25 Order name: Basic Metabolic Panel EDMS 12/28 10:25 Order name: Basic Metabolic Panel EDMS 12/28 10:25 Order name: CBC with Automated Diff EDMS 12/28 10:25 Order name: CBC with Automated Diff EDMS 12/28 10:25 Order name: Lipid Profile EDMS 12/28 10:25 Order name: Lipid Profile EDMS 12/28 10:25 Order name: Troponin High Sensitivity EDMS 12/28 10:25 Order name: Troponin High Sensitivity EDMS 12/28 10:25 Order name: Troponin High Sensitivity EDMS 12/28 10:25 Order name: Troponin High Sensitivity EDMS 12/28 22:03 Order name: Glucose, Ancillary Testing EDMS 12/29 08:04 Order name: Glucose, Ancillary Testing EDMS 12/28 07:49 Order name: XRAY Chest (1 view); Complete Time: 09:28 gerald 12/28 08:45 Order name: CT Chest For PE Angio; Complete Time: 09:28 gerald 12/28 09:29 Order name: US Abdomen Limited [facility] 12/28 10:25 Order name: Echo with Doppler [facility] 12/28 07:49 Order name: Cardiac monitoring; Complete Time: 08:13 gerald 12/28 07:49 Order name: EKG - Nurse/Tech; Complete Time: 08:13 gerald 12/28 07:49 Order name: IV Saline Lock; Complete Time: 08:13 gerald 12/28 07:49 Order name: Labs collected and sent; Complete Time: 08:13 gerald 12/28 07:49 Order name: O2 Per Protocol; Complete Time: 08:13 gerald 12/28 07:49 Order name: O2 Sat Monitoring; Complete Time: 08:13 gerald EC:39 Rate is 90 beats/min. Rhythm is regular. QRS [place] is Normal. NM interval is normal. QRS gerald interval is normal. QT interval is normal. No Q waves. No ST changes noted. Clinical impression: NSR w/ Non-specific ST/T Changes and No evidence of ischemia. Interpreted by me. Reviewed by me. Administered Medications: 08:11 Drug: NS 0.9% IV 500 ml 500 ml IV at 1 bolus once; to be given as a bolus over 30 iw minutes Volume: 500 ml; Route: IV; Rate: 1 bolus; Site: left antecubital; 10:00 Follow up: IV Status: Completed infusion iw 08:11 Drug: Famotidine IVP 20 mg IVP once; dilute with 10 mL 0.9% NaCl; give over 2 minutes iw Route: IVP; Site: left antecubital; 09:18 Drug: morphine IVP or IV 4 mg IVP once over 4 mins Route: IVP; Infused Over: 4 mins; iw Site: left antecubital; 09:18 Drug: Ondansetron IVP 4 mg IVP once; over 2 minutes Route: IVP; Site: left antecubital; iw 09:56 Drug: Enoxaparin Sub-Q 1 mg/kg Sub-Q once Route: Sub-Q; Site: right lower abdomen; iw 09:56 Drug: Metoprolol PO 50 mg PO once Route: PO; iw Disposition Summary: 12/28/24 09:52 Hospitalization Ordered Notes: Hospitalization Status: Inpatient Admission gerald Provider: Prince gerald Lau Condition: Fair gerald Problem: new gerald Symptoms: have improved gerald Bed/Room Type: Standard gerald Location: Telemetry/MedSurg (observation)(12/29/24 10:25) bc6 Room Assignment: 207(12/29/24 10:25) bc6 Diagnosis - Chest pain, unspecified gerald - Dyspnea gerald Discharge Instructions: - Discharge Summary Sheet bm8 Forms: - Medication Reconciliation Form gerald - SBAR form gerald - Leadership Thank You Letter gerald - Family Work Release bm8 Signatures: Dispatcher [employer] EDMS Omar Velez MD MD cha Williams, Irene RN LUL iw Marina Beth RN RN ll1 Niurka Avery RN RN 3 Arabella Rodriguez bc6 Corrections: (The following items were deleted from the chart) 07:50 07:50 BASIC METABOLIC PANEL+C.LAB.BRZ ordered. EDMS EDMS 07:50 07:50 CBC+H.LAB.BRZ ordered. EDMS EDMS 07:50 07:50 HEPATIC FUNCTION+C.LAB.BRZ ordered. EDMS EDMS 07:50 07:50 MAGNESIUM+C.LAB.BRZ ordered. EDMS EDMS 07:50 07:50 PROBNP+C.LAB.BRZ ordered. EDMS EDMS 07:50 07:50 PROTIME (+INR)+COAG.LAB.BRZ ordered. EDMS EDMS 07:50 07:50 Troponin High Sensitivity+C.LAB.BRZ ordered. EDMS EDMS 07:50 07:50 LIPASE+C.LAB.BRZ ordered. EDMS EDMS 07:50 07:50 UA Rfx Vinod Cult if indicated+U.LAB.BRZ ordered. EDMS EDMS 07:50 07:50 Chest Single View+RAD.RAD.BRZ ordered. EDMS EDMS 08:45 08:45 Chest For PE Angio+CT.RAD.BRZ ordered. EDMS EDMS 10:47 09:52 Telemetry/MedSurg (observation) gerald kb3 10:47 09:52 gerald kb3 12/29 09:58 12/28 10:47 [facility] ER HOLD kb3 6 12/29 09:58 12/28 10:47 ERHOLD- kb3 6 12/29 10:00 09:58 Telemetry/MedSurg (observation) bc6 bc6 10:00 09:58 208 bc6 bc6 10:25 10:00 [facility] ER HOLD bc6 bc6 10:25 10:00 bc6 bc6
--- NOTE | 2024-12-28 09:54 | RAD REPORT ---
EXAM: Right upper quadrant ultrasound. CLINICAL HISTORY: ABD PAIN COMPARISON: None. FINDINGS: Gallbladder: Large shadowing gallstone. Bile ducts: No intrahepatic or extrahepatic biliary dilatation. Common bile duct measures 4 mm. Limited imaging of the liver shows no concerning finding. IMPRESSION: Cholelithiasis.
[2024-12-28] MEDS ORDERED: NITROGLYCERIN 0.4 MG/TAB SL PRN (10:20)
[2024-12-28] MEDS ORDERED: SODIUM CHLORIDE 0.9% 10ML INJ IV PRN (10:46)
[2024-12-28] MEDS: PANTOPRAZOLE 40 MG INJ IVP SCH (10:46)
--- NOTE | 2024-12-28 10:46 | P.HP ---
Certification for Inpatient Patient admitted to: Observation With expected LOS: <2 Midnights Practitioner: I am a practitioner with admitting privileges, knowledge of patient current condition, hospital course, and medical plan of care. Services: Services provided to patient in accordance with Admission requirements found in Title 42 Section 412.3 of the Code of Federal Regulations Patient History Date of Service: 12/28/24 Reason for admission: Chest pain History of Present Illness: Patient is a 49-year-old female with no significant past medical history. She presented to the ER complaining of chest pain. She is describing a substernal chest pain, nonradiating. Her symptoms are alleviated by remaining still. The chest pain is pleuritic and positional in nature. She has never had any significant cardiovascular history. Her medical history is positive for menorrhagia and acute blood loss anemia. She has been found to have moderate hiatal hernia on endoscopic evaluation and gastritis. She has a history of iron deficiency anemia. Her hemoglobin is normal. Her first troponin is negative. Pulmonary embolism has been ruled out Allergies levofloxacin [From Levaquin] Allergy (Verified 05/02/24 15:20) Rash Home Medications: Ferrous Gluconate 324 mg PO BID #60 05/06/24 Ondansetron [Ondansetron Odt] 4 mg PO TID PRN #20 05/06/24 PE-Ep/Mo/Slov/Pet [Formulation R*] 1 appl [place] BID #1 tube 05/06/24 - Past Medical/Surgical History Diabetic: No -: Irregular heavy cycles -: Anemia -: x 4 Psychosocial/ Personal History: Patient lives at home with her children, she states she has had similar episodes in the past but not for the last 8 or 9 years - Family History Father -: Hypertension Mother -: Hypertension - Social History Alcohol use: No CD- Drugs: No Caffeine use: Yes Physical Examination - Physical Exam General: Acute distress HEENT: Atraumatic, Normocephalic Respiratory: Clear to auscultation bilaterally, Normal air movement Cardiovascular: No edema, Normal pulses, Regular rate/rhythm, Normal S1 S2 Neurological: Normal speech - Studies Laboratory Data (last 24 hrs) 12/28/24 12/28/24 12/28/24 08:08 08:08 08:08 WBC 6.30 Hgb 13.7 Hct 40.9 Plt Count 324 PT 12.2 INR 1.08 Sodium 138 Potassium 3.8 BUN 4 L Creatinine 0.73 Glucose 116 H Magnesium 1.9 Total Bilirubin 0.5 AST < 10 L ALT 16 Alkaline Phosphatase 60 Lipase 25 Assessment and Plan - Plan Assessment 49-year-old female with no cardiovascular history who presented to the ER complaining of chest pain. Her first troponin is negative. Pulmonary embolism has been ruled out with a CT angio of the chest. She is being admitted for ACS rule out. Chest pain History of moderate hiatal hernia History of gastritis Cholelithiasis Plan: Will admit under observation with telemetry EKG w/o ischemic changes Trend troponin Nonurgent consult to cardiology Due to her hx of gastritis and hiatal hernia, will give a trial of PPI Otherwise, symptomatic management No need to consult surgery for cholecystectomy due to lack of symptoms. Lipase and LFTs. - Advance Directives Does patient have a Living Will: No Does patient have a Durable POA for Healthcare: No
[2024-12-28 12:36] VITALS: BMI 26.1
[2024-12-28 13:18] LABS: HDL Cholesterol 31.0 mg/dL (40-60); LDL Cholesterol, Calculated 97.0 mg/dL (<130); LDL Cholesterol,Calc NonReport 97.0; Troponin High Sensitivity 18.9 pg/mL (<58.9)
[2024-12-28] MEDS: MORPHINE 2 MG/ML SYR IV PRN (14:36)
[2024-12-28] MEDS ORDERED: MORPHINE 2 MG/ML SYR ONE ×2 (14:36→19:40)
[2024-12-29] MEDS ORDERED: MORPHINE 2 MG/ML SYR ONE (02:56)
[2024-12-29 04:25] LABS: Absolute Lymphocytes (CBC) 1.6 K/uL (0.7-4.9); Hematocrit 34.4 % (36.0-45.0); Hemoglobin 11.6 g/dL (12.0-15.0); MCH 27.2 pg (27.0-35.0); MCHC 33.7 g/dL (32.0-36.0); MCV 80.7 fL (80-100); MPV 8.6 fL (7.6-11.3); Nucleated RBC Absolute Count 0.0 (0-0); Nucleated Red Blood Cells % 0.1 % (0-0); RBC Red Blood Cell Count 4.26 M/uL (3.86-4.86); White Blood Count 4.70 thou/uL (4.3-10.9)
[2024-12-29 04:44] LABS: Anion Gap 10.4 mEq/L (5.0-15.0); BUN Blood Urea Nitrogen 7.0 mg/dL (7-18); Glucose Level 105.0 mg/dL (74-106); Potassium 3.4 mEq/L (3.5-5.1)
[2024-12-29] MEDS ORDERED: ENOXAPARIN 40 MG/0.4 ML SQ ONE (08:00)
[2024-12-29] MEDS ORDERED: ASPIRIN EC 81 MG TAB PO ONE (08:00)
[2024-12-29] MEDS ORDERED: PANTOPRAZOLE 40 MG INJ ONE (08:00)
[2024-12-29] MEDS: ENOXAPARIN 40 MG/0.4 ML SQ SCH (08:49)
[2024-12-29] MEDS: ASPIRIN EC 81 MG TAB PO SCH (08:49)
--- NOTE | 2024-12-29 11:41 | P.CNS ---
Date of Consult: 12/29/24 Chief Complaint: Chest pain History of Present Illness: Patient with no significant PMH, presented with chest pain started yesterday, sharp in nature, no radiation, no other associated symptoms, pain is resolved now, denies any cardiac history, no palpitations, no syncope, no breathing problems. Allergies levofloxacin [From Levaquin] Allergy (Verified 05/02/24 15:20) Rash Home medications list reviewed: Yes Home Medications: Ferrous Gluconate 324 mg PO BID #60 05/06/24 Ondansetron [Ondansetron Odt] 4 mg PO TID PRN #20 05/06/24 PE-Ep/Mo/Slov/Pet [Formulation R*] 1 appl [place] BID #1 tube 05/06/24 - Past Medical/Surgical History Diabetic: No -: Irregular heavy cycles -: Anemia -: x 4 Psychosocial/ Personal History: Patient lives at home with her children, she states she has had similar episodes in the past but not for the last 8 or 9 years - Family History Father Medical History: Hypertension Mother Medical History: Hypertension - Social History Alcohol use: No CD- Drugs: No Caffeine use: Yes Review of Systems 10-point ROS is otherwise unremarkable Physical Examination Temp Pulse Resp BP Pulse Ox 98.8 F 76 18 119/84 100 12/29/24 08:00 12/29/24 08:00 12/29/24 08:00 12/29/24 08:00 12/29/24 08:00 General: Alert, In no apparent distress HEENT: Atraumatic, PERRLA, Mucous membr. moist/pink, EOMI, Sclerae nonicteric Neck: Supple, 2+ carotid pulse no bruit, No LAD, Without JVD or thyroid abnormality Respiratory: Clear to auscultation bilaterally, Normal air movement Cardiovascular: Regular rate/rhythm, Normal S1 S2 Gastrointestinal: Normal bowel sounds, No tenderness Musculoskeletal: No tenderness Integumentary: No rashes Neurological: Normal gait, Normal speech, Normal tone, Normal affect Lymphatics: No axilla or inguinal lymphadenopathy - Problems (1) Chest pain Current Visit: Yes Status: Acute Plan: atypical with no significant EKG changes, Troponin negative x3 sets get echo, if normal then patient can go home and follow up with cardiology as outpatient.
[2024-12-29 11:48] VITALS: O2SAT 98
[2024-12-29 12:37] VITALS: BP 119/75; TEMP 98
--- NOTE | 2024-12-29 12:40 | P.DS ---
Admission Date: 12/28/24 Discharge Date: 12/29/24 Disposition: ROUTINE DISCHARGE Discharge Condition: GOOD Reason for Admission: Chest pain Brief History of Present Illness: Patient is a 49-year-old female with no significant past medical history. She presented to the ER complaining of chest pain. She is describing a substernal chest pain, nonradiating. Her symptoms are alleviated by remaining still. The chest pain is pleuritic and positional in nature. She has never had any significant cardiovascular history. Her medical history is positive for menorrhagia and acute blood loss anemia. She has been found to have moderate hiatal hernia on endoscopic evaluation and gastritis. She has a history of iron deficiency anemia. Her hemoglobin is normal. Her first troponin is negative. Pulmonary embolism has been ruled out Hospital Course: Patient stayed in the hospital for ACS work up. She had 3 negative cardiac enzymes. Her chest pain was most likely gastrointestinal in etiology. Her EGD e willie this year showed gastritis, hiatal hernia and gastric polyp. She has responded to a trial of PPI. Her chest pain has significantly subsided. She is medically cleared for discharge. Vital Signs/Physical Exam: Temp Pulse Resp BP Pulse Ox 98.0 F 72 18 119/75 97 12/29/24 12:00 12/29/24 12:00 12/29/24 12:00 12/29/24 12:00 12/29/24 12:00 General: Alert, In no apparent distress, Cooperative HEENT: Atraumatic, Normocephalic Respiratory: Other (breathing is not laboured) Cardiovascular: No edema, Normal pulses, Regular rate/rhythm, Normal S1 S2 Neurological: Normal speech Laboratory Data at Discharge: WBC 4.70 thou/uL (4.3-10.9) 12/29/24 04:10 Hgb 11.6 g/dL (12.0-15.0) L D 12/29/24 04:10 Hct 34.4 % (36.0-45.0) L 12/29/24 04:10 Plt Count 259 thou/uL (152-406) 12/29/24 04:10 PT 12.2 SECONDS (10-13.0) 12/28/24 08:08 INR 1.08 12/28/24 08:08 Sodium 140 mEq/L (136-145) 12/29/24 04:10 Potassium 3.4 mEq/L (3.5-5.1) L 12/29/24 04:10 BUN 7 mg/dL (7-18) 12/29/24 04:10 Creatinine 0.57 mg/dL (0.55-1.02) 12/29/24 04:10 Glucose 105 mg/dL (74-106) 12/29/24 04:10 Magnesium 1.9 mg/dL (1.6-2.4) 12/28/24 08:08 Total Bilirubin 0.5 mg/dL (0.2-1.0) 12/28/24 08:08 AST < 10 U/L (15-37) L 12/28/24 08:08 ALT 16 U/L (13-56) 12/28/24 08:08 Alkaline Phosphatase 60 U/L (45-117) 12/28/24 08:08 Triglycerides 129 mg/dL (<150) 12/28/24 12:39 Cholesterol 154 mg/dL (<200) 12/28/24 12:39 HDL Cholesterol 31 mg/dL (40-60) L 12/28/24 12:39 Cholesterol/HDL Ratio 4.97 12/28/24 12:39 Lipase 25 U/L (13-75) 12/28/24 08:08 Home Medications: NK [No Home Meds] 12/29/24 Followup: NONE,NONE [Primary Care Provider] - Rick Suazo MD [ACTIVE - CAN ADMIT] - 1 Week (Please follow up with cardiology for echocardiogram)
[2024-12-29] MEDS: POTASSIUM 25 MEQ EFFERV TAB PO ONE (12:56)
== END 2024-12-29 14:00 | disposition home or self-care (01) ==
LOC: ER 07:43 → ERHOLD 10:20 → 2ND 12-29 11:37
PROVIDERS: ADMIT Internal Medicine; ATTEND Internal Medicine
DX: R07.89 Other chest pain (principal); K29.70 Gastritis, unspecified, without bleeding; K80.20 Calculus of gallbladder without cholecystitis without obstruction; K44.9 Diaphragmatic hernia without obstruction or gangrene; D50.0 Iron deficiency anemia secondary to blood loss (chronic); N92.0 Excessive and frequent menstruation with regular cycle; Z88.1 Allergy status to other antibiotic agents
CPT/HCPCS: 36415; 71045; 71275; 76705; 80048; 80061; 80076; 81001; 82947; 83690; 83735; 83880; 84484; 85025; 85610; 93005; 96361; 96372; 96374; 96375; 99284; G0378; J1650; J2270; J2405; J2470; J7040; Q9967